=== PATIENT | male | born 1960 | race Caucasian/White ===

== ENCOUNTER 2018-05-04 08:37 | Inpatient (IN) | payer OTHER ==
[~2018-05-04] VITALS: Ht 185.4 cm; Wt 85.3 kg
[2018-05-09] MEDS ORDERED: GAS RELIEF125 M1 PO (11:18)
[2018-05-09] MEDS ORDERED: KETO10TA2 PO (11:18)
[2018-05-09] MEDS ORDERED: PERCOCET 5-3251 EACH PO (11:21)
[2018-05-09] MEDS ORDERED: MUPIROCIN15 GM TOP (11:21)
== END 2018-05-09 12:43 | disposition home or self-care (01) | DRG 331 ==
LOC: ADM 10:00 → EDSTATUS 10:00 → SURG 05-06 08:10 → O/R 05-06 08:10 → SURG 05-06 15:48
PROVIDERS: Surgery
PROC: 07TC4ZZ Resection of Pelvis Lymphatic, Percutaneous Endoscopic Approach (ICD-10-PCS; 2018-05-06)
PROC: 0DTG4ZZ Resection of Left Large Intestine, Percutaneous Endoscopic Approach (ICD-10-PCS; principal; 2018-05-06 10:15)
DX: C18.5 Malignant neoplasm of splenic flexure (principal)

== ENCOUNTER 2018-06-21 08:30 | Day surgery (SDC) | payer OTHER ==
[~2018-06-21 08:30] MED LIST: GAS RELIEF125 M1 PO; KETO10TA2 PO; MUPIROCIN15 GM TOP; PERCOCET 5-3251 EACH PO
[2018-06-21] MEDS ORDERED: ULTRACET PO (13:33)
== END 2018-06-21 16:50 | disposition home or self-care (01) ==
LOC: CIR.AMB 08:30
DX: C18.5 Malignant neoplasm of splenic flexure (principal)
CPT/HCPCS: 36561; C1751

== ENCOUNTER 2020-02-14 07:41 | Outpatient (CLI) | payer OTHER ==
[~2020-02-14 07:41] MED LIST changes: +ULTRACET PO
== END 2020-02-14 07:43 | disposition home or self-care (01) ==
LOC: RAD 07:41
PROVIDERS: ATTEND Surgery
DX: C18.5 Malignant neoplasm of splenic flexure (principal); R19.4 Change in bowel habit; R19.5 Other fecal abnormalities; R59.0 Localized enlarged lymph nodes

== ENCOUNTER 2020-02-20 07:49 | Day surgery (SDC) | payer OTHER ==
[2020-02-20] MEDS ORDERED: ULTRACET PO (09:00)
== END 2020-02-20 10:55 | disposition home or self-care (01) ==
LOC: CIR.AMB 07:49
PROVIDERS: ATTEND Surgery
DX: C18.5 Malignant neoplasm of splenic flexure (principal)

== ENCOUNTER 2022-05-12 09:36 | Emergency (ER) | payer OTHER ==
[~2022-05-12] VITALS: Ht 182.9 cm; Wt 86.6 kg
[2022-05-12] MEDS ORDERED: MUPIROCIN22 GM TOP (10:09)
== END 2022-05-12 10:28 | disposition home or self-care (01) ==
LOC: ER 09:36
DX: S61.214A Laceration without foreign body of right ring finger without damage to nail, initial encounter (principal); W54.0XXA Bitten by dog, initial encounter; Y93.89 Activity, other specified; Y92.018 Other place in single-family (private) house as the place of occurrence of the external cause; Y99.9 Unspecified external cause status